=== PATIENT | male | born 2000 | race Caucasian/White ===

== ENCOUNTER 2018-12-28 16:50 | Observation (INO) | payer OTHER ==
[2018-12-27 22:30] VITALS: BP 135/74; PULSE 77
[~2018-12-28] VITALS: Ht 180.3 cm; Wt 78.6 kg
[2018-12-28 17:23] LABS: BASO # 0.1 (0.0-0.2); BASO % 0.7 % (0.0-2.0); EOS % 0.2 % (0-4.0); GRAN # 6.5 (1.4-6.5); GRAN % 58.3 % (42.2-75.2); HEMATOCRIT 47.4 % (36.0-47.0); HEMOGLOBIN 16.2 g/dl (12.5-16.1); LYMPH # 3.4 (1.2-3.4); LYMPH % 30.8 % (20.0-51.0); MEAN CELL VOLUME 91 fl (80.0-95.0); MEAN CORPUSCULAR HEMOGLOBIN 31 pg (26.0-32.0); MEAN CORPUSCULAR HGB CONC 34 g/dl (33.0-37.0); MEAN PLATELET VOLUME 10.1 fl (7.4-10.4); MONO # 1.1 (0.1-0.6); MONO % 9.7 % (1.7-9.3); PLATELET COUNT 319 K/mm3 (130-400); RED BLOOD COUNT 5.19 M/mm3 (4.20-5.60); REDCELL DISTRIBUTION WIDTH-CV 11.8 % (11.5-14.5)
[2018-12-28 17:37] LABS: BILIRUBIN,TOTAL 0.5 mg/dL (0.0-1.0); CALCIUM 9.7 mg/dL (8.4-10.2); CREATININE, serum 1.24 (0.66-1.25); POTASSIUM 3.5 mmol/L (3.4-5.0); TOTAL PROTEIN 8.5 gm/dL (6.4-8.2)
[2018-12-28 21:15] VITALS: BP 146/83; PULSE 85; TEMP 98.1
--- NOTE | 2018-12-28 21:15 | NUR ---
Pt. to the floor at this time. Pt. is A&OX3. Dressing to LLE CDI. Pt. denies pain at this time. VSS. Pt. denies further needs.
[2018-12-28 21:30] VITALS: BP 139/79; PULSE 75
--- NOTE | 2018-12-28 21:32 | NUR ---
Pt. arrived to the floor via bed. Pt. is A&OX3, assessment complete. IV to rt. forearm patent, iv fluids infusing per orders. Pt. denies pain at this time. Dressing to LLE CDI. [facility] WNL. Pt. denies further needs at this time. Call light within reach.
[2018-12-28 21:45] VITALS: BP 137/79; PULSE 77
[2018-12-28 22:00] VITALS: BP 147/82; PULSE 78
[2018-12-28 22:30] VITALS: BP 138/79; PULSE 67
[2018-12-28 23:00] VITALS: BP 135/74; PULSE 69
[2018-12-29] VITALS (8 sets, daily range): BP systolic 109–128; BP diastolic 53–72; PULSE 60–76; TEMP 97.5–98.5
--- NOTE | 2018-12-29 10:20 | NUR ---
Patient alert and oriented, answers questions appropriately. See assessment. LLE with JACQUELIN in place, NWB, neuros intact. No c/o at this time.
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
--- NOTE | 2018-12-29 20:15 | NUR ---
Pt resting in bed. No distress noted. Reporting pain 5/10 in LLE. Requesting pain medication but would like to ambulate first. Splint/James wrap to LLE clean, dry and intact. CMS intact to LLE. Pt Non WB to LLE with crutches. Lungs clear. BS+. SCDs in place when in bed. R AC INT infusing IV Abx as scheduled. Will continue to monitor.
--- NOTE | 2018-12-29 20:20 | NUR ---
Pt up walking in halls with crutches. No distress noted. Well tolerated.
--- NOTE | 2018-12-29 22:00 | NUR ---
Pt assisted to shower. LLE splint and RAC INT covered.
[2018-12-30 03:06] VITALS: BP 133/52; PULSE 69; TEMP 98.3
--- NOTE | 2018-12-30 06:05 | NUR ---
Pt sleeping this AM. Pt did not fall alseep until about 0300 last night. Pt was up ambulating the halls x1 and also showered. Medicated for pain as needed. No distress noted this AM.
--- NOTE | 2018-12-30 08:00 | NUR ---
PATIENT IS RESTING IN BED WITH MOTHER PRESENT AT THE BEDSIDE. PATIENT IS A&OX4. VSS. BOWEL SOUNDS ACTIVE ALL FOUR QUADRANTS. PATIENT TOLERATING DIET WITHOUT ANY COMPLAINTS OF N/V. LLE DRESSED WITH SPLINT AND JACQUELIN WRAP DRESSING AND IS CD&I. CMS INTACT TO BLE. CAP REFILL <3 SECONDS. EDEMA TO LEFT TOES NOTED. LLE ELEVATED ON PILLOWS WITH ICE. SCD TO RLE. RIGHT AC TO INT. CALL LIGHT WITHIN REACH. PATIENT DENIES ANY OTHER NEEDS AT THIS TIME.
[2018-12-30 09:05] VITALS: BP 97/64; PULSE 73; TEMP 98.2
[2018-12-30 13:14] VITALS: BP 113/52; PULSE 66; TEMP 99.2
--- NOTE | 2018-12-30 19:00 | NUR ---
PATIENT'S RIGHT AC INT DISCONTINUED PER PENDING DISCHARGE. PATIENT TOLERATED WELL. DISCHARGE INSTRUCTIONS REVIEWED WITH PATIENT AND PARENTS. ALL QUESTIONS ANSWERED. PATIENT TAKEN TO PERSONAL VEHICLE VIA WHEELCHAIR BY SURGICAL STAFF. PATIENT DISCHARGED.
== END 2018-12-30 19:00 | disposition home or self-care (01) ==
LOC: COL.ER 16:50 → SURG 17:35
PROVIDERS: Emergency Medicine; ADMIT Orthopaedic Surgery
DX: S82.302B Unspecified fracture of lower end of left tibia, initial encounter for open fracture type I or II (principal); Z82.49 Family history of ischemic heart disease and other diseases of the circulatory system
CPT/HCPCS: A9284; G0378; G0379; J0330; J0690; J0696; J1100; J1170; J1580; J2060; J2405; J2704; J3010; J7030; J7042